=== PATIENT | male | born 1995 | race Caucasian/White ===

== ENCOUNTER 2017-01-12 21:56 | Emergency (ER) | payer MEDICAID ==
[~2017-01-12] VITALS: Ht 180.3 cm; Wt 97.5 kg
[2017-01-12 22:00] VITALS: BP 123/69
--- NOTE | 2017-01-12 23:18 | NUR ---
PT TAKEN TO BED 7
--- NOTE | 2017-01-12 23:20 | NUR ---
21 Y/O M W/C/O L FLANK/ L UPPER ABD PAIN X 3 MTHS ON AND OFF. PT DENIES ANY MED HX, N/V. NO OTHER S/S OF DISTRESS NOTED AT THE MOMENT. ER MADE AWARE.
--- NOTE | 2017-01-13 00:20 | NUR ---
TK CAMARENA AT BEDSIDE EVALUATING PT.
--- NOTE | 2017-01-13 00:30 | NUR ---
XRAY AT BEDSIDE.
[2017-01-13 00:32] LABS: APPEARANCE,URINE CLEAR (CLEAR); BILIRUBIN,URINE NEGATIVE (NEGATIVE); BLOOD, URINE NEGATIVE (NEGATIVE); COLOR,URINE YELLOW (YELLOW); LEUKOCYTE ESTERASE ,URINE NEGATIVE (NEGATIVE); NITRITE, URINE NEGATIVE (NEGATIVE); PH,URINE 6.5 (5.0-9.0); UGLUCOSE NEGATIVE (NEGATIVE)
[2017-01-13 00:39] LABS: BARBITURATE, URINE NEG. ng/ml (NEG <=200); BENZODIAZEPINE, URINE NEG. ng/mL (NEG <=200); CANNABINOID, URINE POS. ng/mL (NEG <=50); COCAINE, URINE NEG. ng/mL (NEG <=300); OPIATE, URINE NEG. ng/mL (NEG <=2000); PHENCYCLIDINE SCREEN,URINE NEG. ng/mL (NEG <=25)
[2017-01-13 01:46] VITALS: BP 122/68
--- NOTE | 2017-01-13 01:47 | NUR ---
Patient discharged with v/s stable. Written and verbal after care instructions given and explained. Patient alert, oriented and verbalized understanding of instructions. Ambulatory with steady gait. All questions addressed prior to discharge. ID band removed. Patient advised to follow up with PMD. Rx of LEVSIN SL 0.125MG PRN given. Patient educated on indication of medication including possible reaction and side effects. Opportunity to ask questions provided and answered.
== END 2017-01-13 01:47 | disposition home or self-care (01) ==
LOC: MED 21:56
DX: K59.09 Other constipation (principal); K59.8 Other specified functional intestinal disorders
CPT/HCPCS: 74000; 80305; 81003; 99285; Q0092